=== PATIENT | female | born 1965 | race Caucasian/White ===

== ENCOUNTER 2017-11-17 21:47 | Emergency (ER) | payer OTHER ==
[~2017-11-17] VITALS: Ht 165.1 cm; Wt 68.0 kg
[~2017-11-17 21:47] MED LIST: ALPR.25 PO; CHLO25TA2 PO; LISI-519 PO
[2017-11-17 22:33] VITALS: BP 139/82; PULSE 90; RESP 16; TEMP 98.6; O2SAT 96
--- NOTE | 2017-11-17 23:56 | PD ---
HPI Chief Complaint: Cardiac Complaint Time Seen by Provider: 23:47 Travel History International Travel<30 days: No Contact w/Intl Traveler<30days: No Traveled to known affect area: No History of Present Illness HPI The patient is a 52 year old female who presents to the [facility] emergency department with a history of palpitations and lightheaded sensations that first occurred. She also develops a headache that is a pressure sensation. She denies any chest pain or shortness of breath. The patient denies any history of fever, cough, congestion, neck pain, chest pain, shortness of breath , abdominal pain, vomiting, diarrhea, urinary symptoms, or neurologic symptoms. She had a follow up appt with a covering PCP on regarding her hypertension and newly starting back on hypertensive medication. She reported to that physician that she has had generalized weakness and fatigue since starting the new blood pressure medication. She was told to 1/2 her lisinopril 5 mg tablet and take it bid. She was on blood pressure medication up until 2016 when she d/c it due to dietary changes and weight loss. [facility] Past Medical History Narrative Medical The patient's past medical history is significant for hypertension, hyperlipidemia, vertigo, kidney stone, urinary stress incontinence, skin cancer , anxiety disorder, hyperhidrosis. Cardiovascular Problems: Yes (HTN) High Cholesterol: Yes Hypertension: Yes Immunizations Current: Yes Tetanus Vaccination: Unknown Influenza Vaccination: No ?: Not Menopausal: Yes Tubal Ligation: Yes Past Surgical History Narrative Surgical The patient's past surgical history is significant for lithotripsy, double ureter-s/p correction, cleft palate repair, BTL, skin cancer removal. Genitourinary Surgery: Yes (KIDNEY STONE, URETER REPAIR) Hysterectomy: Yes Oral Surgery: Yes (CLEFT PALATE) Other Surgery: Yes (SKIN CA REMOVAL) Social History Alcohol Use: No Tobacco Use: Yes (3/4 ppd.) Substance Use: No Allergies-Medications (Allergen,Severity, Reaction): Coded Allergies: ciprofloxacin (Verified Allergy, Intermediate, numbness/tingling and burning in hands for 6 m, 11/17/17) nitrofurantoin (Verified Allergy, Mild, nausea/fast heart rate/, 11/17/17) Reported Meds & Prescriptions Reported Meds & Active Scripts Active Lisinopril 5 Mg Tab 5 Mg PO DAILY Reported Meclizine (Meclizine HCl) 25 Mg Tab 25 Mg PO DIRECTED PRN Review of Systems Except as stated in HPI: all other systems reviewed are Neg General / Constitutional: No: Fever Eyes: No: Visual changes HENT: No: Headaches Cardiovascular: Positive: Palpitations, Tachycardia, No: Chest Pain or Discomfort Respiratory: No: Shortness of Breath Gastrointestinal: No: Abdominal Pain Genitourinary: No: Dysuria Musculoskeletal: No: Pain Skin: No Rash Neurologic: No: Weakness Psychiatric: No: Depression Endocrine: No: Polydipsia Hematologic/Lymphatic: No: Easy Bruising Physical Exam Narrative General: The patient is a well-developed well-nourished female in no acute distress. Head and Neck exam: Head is normocephalic atraumatic. Eyes: EOMI, pupils are equal round and reactive to light. Nose: Midline septum with pink mucous membranes Mouth: Dentition unremarkable. Moist mucus membranes. Posterior oropharynx is not erythematous. No tonsillar hypertrophy. Uvula midline. Airway patent. Neck: No palpable lymphadenopathy. No nuchal rigidity. No thyromegaly. Cardiovascular: Regular rate and rhythm without murmurs, gallops, or rubs. No pulse deficit to the extremities on simultaneous auscultation and palpation of her radial artery. Lungs: Clear to auscultation bilaterally. No wheezes, rhonchi, or rales. Abdomen: Soft, without tenderness to palpation in all 4 quadrants of the abdomen. No guarding, rebound, or rigidity. Normal bowel sounds are audible. No tenderness on palpation of McBurney's point Extremities: No clubbing, cyanosis, or edema. 2+ pulses in all 4 extremities. No calf tenderness on palpation. Negative Homans sign. No palpable cords. Back: No spinous process tenderness to palpation. No costovertebral angle tenderness to palpation. Neurologic Exam: Grossly nonfocal Skin Exam: No rash noted. Intact skin that is warm and dry. Data Data Last Documented VS Vital Signs Date Time Temp Pulse Resp B/P (MAP) Pulse Ox O2 Delivery O2 Flow Rate FiO2 11/18/17 04:02 77 16 116/57 (76) 95 Room Air 11/17/17 22:33 98.6 Orders Orders Electrocardiogram (11/18/17 01:01) Complete Blood Count With Diff (11/18/17 01:01) Basic Metabolic Panel (Bmp) (2/27/18 01:01) Creatine Kinase (Cpk) (11/18/17 01:01) Ckmb (Isoenzyme) Profile (11/18/17 01:01) Troponin I (11/18/17 01:01) B-Type Natriuretic Peptide (11/18/17 01:01) Prothrombin Time / Inr (Pt) (11/18/17 01:01) Act Partial Throm Time (Ptt) (11/18/17 01:01) Urinalysis - C+S If Indicated (11/18/17 01:01) Magnesium (Mg) (11/18/17 01:01) Chest, Single Ap (11/18/17 01:01) Iv Access Insert/Monitor (11/18/17 01:01) Ecg Monitoring (11/18/17 01:01) Oximetry (11/18/17 01:01) Aspirin Chew (Aspirin Chew) (11/18/17 01:15) Ed Discharge Order (11/18/17 04:13) Labs Laboratory Tests Test 11/18/17 01:10 11/18/17 01:15 Urine Color LIGHT-YELLOW Urine Turbidity CLEAR Urine pH 6.0 Urine Specific [place] 1.008 Urine Protein NEG mg/dL Urine Glucose (UA) NEG mg/dL Urine Ketones NEG mg/dL Urine Occult Blood NEG Urine Nitrite NEG Urine Bilirubin NEG Urine Urobilinogen LESS THAN 2.0 MG/DL Urine Leukocyte Esterase SMALL Urine RBC 1 /hpf Urine WBC 1 /hpf Urine Squamous Epithelial Cells 2 /hpf Urine Bacteria RARE /hpf Microscopic Urinalysis Comment CULT NOT INDICATED White Blood Count 12.3 TH/MM3 Red Blood Count 5.04 MIL/MM3 Hemoglobin 14.7 GM/DL Hematocrit 42.1 % Mean Corpuscular Volume 83.5 FL Mean Corpuscular Hemoglobin 29.2 PG Mean Corpuscular Hemoglobin Concent 34.9 % Red Cell Distribution Width 13.1 % Platelet Count 367 TH/MM3 Mean Platelet Volume 8.7 FL Neutrophils (%) (Auto) 51.0 % Lymphocytes (%) (Auto) 39.8 % Monocytes (%) (Auto) 6.9 % Eosinophils (%) (Auto) 1.8 % Basophils (%) (Auto) 0.5 % Neutrophils # (Auto) 6.3 TH/MM3 Lymphocytes # (Auto) 4.9 TH/MM3 Monocytes # (Auto) 0.8 TH/MM3 Eosinophils # (Auto) 0.2 TH/MM3 Basophils # (Auto) 0.1 TH/MM3 CBC Comment DIFF FINAL Differential Comment Prothrombin Time 10.2 SEC Prothromb Time International Ratio 1.0 RATIO Activated Partial Thromboplast Time 25.0 SEC Blood Urea Nitrogen 12 MG/DL Creatinine 0.66 MG/DL Random Glucose 105 MG/DL Calcium Level 9.3 MG/DL Magnesium Level 2.3 MG/DL Sodium Level 139 MEQ/L Potassium Level 3.8 MEQ/L Chloride Level 104 MEQ/L Carbon Dioxide Level 32.1 MEQ/L Anion Gap 3 MEQ/L Estimat Glomerular Filtration Rate 94 ML/MIN Total Creatine Kinase 65 U/L Troponin I LESS THAN 0.02 NG/ML B-Type Natriuretic Peptide 11 PG/ML MDM Medical Decision Making Medical Screen Exam Complete: Yes Emergency Medical Condition: Yes Medical Record Reviewed: Yes Interpretation(s) Last Impressions Chest X-Ray 11/18/17 0101 Signed Impressions: Service Date/Time: Saturday, November 18, 2017 01:32 - CONCLUSION: 1. No acute cardiopulmonary disease. Anton Vega MD Differential Diagnosis SVT, versus paroxysmal atrial fibrillation, versus PACs, versus PVCs, versus anxiety disorder, versus panic attack Narrative Course During the course of the patient's emergency department visit, the patient's history, examination, and differential diagnosis were reviewed with the patient. The patient was placed on a quality assurance monitor body with oximetry and frequent blood pressure monitoring. The patient had IV access obtained and blood work sent for analysis. The patient had an EKG done on arrival that shows a sinus rhythm heart rate of 68, QRS duration is 79 ms, QTC [address] segment elevation is noted. T waves are inverted in V1. The patient was initially provided an aspirin 324 mg p.o. 1. The patient's laboratory studies were reviewed and remarkable for a white count of 12.3, hemoglobin 14.7, platelets 367 with a normal differential, basic metabolic profile is remarkable for CO2 of 32.1, cardiac enzymes within normal limits, magnesium 2.3, BNP is 11, PT PTT within normal limit, urinalysis shows small leukocyte esterase otherwise unremarkable. Radiology studies were reviewed and remarkable for chest x-ray that shows no evidence of acute cardiopulmonary disease. The patient has remained asymptomatic during her emergency department observation. I recommended that the patient follow-up closely with her primary care physician. I recommended that she continue on her blood pressure medication as previously prescribed. The patient is resting comfortably and feels better, is alert and in no distress. The patient's results and examination findings were discussed with the patient. The repeat examination is unremarkable and benign. The history, exam, diagnostic testing, and current condition do not suggest any significant pathology to warrant further testing, continued ED treatment, admission, or surgical evaluation at this point. The vital signs have been stable. The patient does not have uncontrollable pain, intractable vomiting, or other significant symptoms. The patient's condition is stable and appropriate for discharge. The patient will pursue further outpatient evaluation with a primary care physician or other designated or consulting physician as indicated in the discharge instructions. The patient expressed understanding and was agreeable with this plan. Diagnosis Primary Impression: Heart palpitations Additional Impression: Hypertension Qualified Codes: I10 - Essential (primary) hypertension Referrals: Primary Care Physician 2 days Patient Instructions: General Instructions, Heart Palpitations (ED), Hypertension (ED) Additional Instructions: Continue lisinopril as previously prescribed Disposition: 01 DISCHARGE HOME Condition: Stable Mamta Herrera MD Nov 17, 2017 23:56
[2017-11-18 00:06] VITALS: BP 154/72; PULSE 77; RESP 18; O2SAT 99
[2017-11-18] MEDS ORDERED: MECL-62 PO (00:14)
[2017-11-18] MEDS ORDERED: ASPIRIN 81 MG CHEW TAB CHEW ONE (01:15)
[2017-11-18 01:44] LABS: AUTOMATED NEUTROPHIL # 6.3 TH/MM3 (1.8-7.7); BASOPHIL # 0.1 TH/MM3 (0-0.2); BASOPHIL % 0.5 % (0.0-2.0); EOSINOPHIL # 0.2 TH/MM3 (0-0.4); EOSINOPHIL % 1.8 % (0.0-4.0); HEMATOCRIT 42.1 % (35.0-46.0); HEMOGLOBIN 14.7 GM/DL (11.6-15.3); LYMPH % 39.8 % (9.0-44.0); LYMPHOCYTE # 4.9 TH/MM3 (1.0-4.8); MEAN CELL VOLUME 83.5 FL (80.0-100.0); MEAN CORPUSCULAR HEMOGLOBIN 29.2 PG (27.0-34.0); MEAN CORPUSCULAR HGB CONC 34.9 % (32.0-36.0); MEAN PLATELET VOLUME 8.7 FL (7.0-11.0); MONO % 6.9 % (0.0-8.0); MONOCYTE # 0.8 TH/MM3 (0-0.9); PLATELET COUNT 367 TH/MM3 (150-450); RED BLOOD COUNT 5.04 MIL/MM3 (4.00-5.30); RED CELL DISTRIBUTION WIDTH 13.1 % (11.6-17.2); WHITE BLOOD COUNT 12.3 TH/MM3 (4.0-11.0)
[2017-11-18 01:52] LABS: PROTHROMBIN TIME - PATIENT 10.2 SEC (9.8-11.6)
[2017-11-18 02:03] LABS: BICARBONATE 32.1 MEQ/L (21.0-32.0); BLOOD UREA NITROGEN 12 MG/DL (7-18); CALCIUM 9.3 MG/DL (8.5-10.1); CHLORIDE 104 MEQ/L (98-107); CREATININE 0.66 MG/DL (0.50-1.00); GLOMERULAR FILTRATION RATE 94 ML/MIN (>89); GLUCOSE,RANDOM 105 MG/DL (74-106); MAGNESIUM 2.3 MG/DL (1.5-2.5); SODIUM (NA) 139 MEQ/L (136-145)
[2017-11-18 02:05] LABS: BACTERIA, URINE RARE /hpf; BILIRUBIN, URINE NEG (NEG); BLOOD, URINE NEG (NEG); GLUCOSE,URINE NEG (NEG); KETONE, URINE NEG (NEG); NITRITE,URINE NEG (NEG); SQUAMOUS EPITHELIAL CELL URINE 2 /hpf (0-5); URINE COLOR LIGHT-YELLOW (YELLW/STRAW); URINE LEUKOCYTE ESTERASE SMALL (NEG)
[2017-11-18 02:06] LABS: TROPONIN I LESS THAN 0.02 NG/ML (0.02-0.05)
--- NOTE | 2017-11-18 02:07 | RADRPT ---
EXAM DATE/TIME: 11/18/2017 01:32 [place] COMPARISON: CHEST SINGLE AP, March 22, 2016, 11:16. INDICATIONS : Cough. MEDICAL HISTORY : Hypertension. SURGICAL HISTORY : None. ENCOUNTER: Initial ACUITY: 1 day PAIN SCORE: 0/10 LOCATION: Bilateral chest FINDINGS: A single view of the chest demonstrates the lungs to be symmetrically aerated without evidence of mas s, infiltrate or effusion. The cardiomediastinal contours are unremarkable. Osseous structures are intact. CONCLUSION: 1. No acute cardiopulmonary disease. Anton Vega MD on November 18, 2017 at 2:06 Board Certified Radiologist. This report was verified electronically.
[2017-11-18 04:02] VITALS: BP 116/57; PULSE 77; RESP 16; O2SAT 95
--- NOTE | 2017-11-18 22:13 | EKG ---
Date Performed: 11/18/2017 Time Performed: 02:03:14 PTAGE: 52 years EKG: Sinus rhythm POSSIBLE LEFT ATRIAL ENLARGEMENT BORDERLINE ECG PREVIOUS TRACING : 03/22/2016 10.53 Since the prior tracing, there has been no significant peace DOCTOR: Mayra Villalobos Interpretating Date/Time 11/18/2017 22:11:45
== END 2017-11-18 04:30 | disposition home or self-care (01) ==
LOC: NEPE 21:47
DX: R00.2 Palpitations (principal); I10 Essential (primary) hypertension; F17.200 Nicotine dependence, unspecified, uncomplicated; R53.1 Weakness; Z79.899 Other long term (current) drug therapy
CPT/HCPCS: 71045; 80048; 81001; 82550; 83735; 83880; 84484; 85025; 85610; 85730; 93005; 99285